=== PATIENT | female | born 1980 | race Hispanic/Latino ===

== ENCOUNTER 2017-10-16 20:53 | Observation (INO) | payer OTHER ==
--- NOTE | 2017-10-16 21:44 | ED PDOC ---
HPI: Abdomen Chief Complaint (Provider): pelvic pain History Per: Patient History/Exam Limitations: no limitations Onset/Duration Of Symptoms: Hrs Current Symptoms Are (Timing): Still Present Severity: Severe Location Of Pain/Discomfort: RLQ, LLQ, Suprapubic Quality Of Discomfort: Sharp Associated Symptoms: denies: Fever, Chills, Nausea, Vomiting, Diarrhea, Chest Pain, Constipation, Urinary Symptoms Exacerbating Factors: Deep Breaths, Other (Sitting) Alleviating Factors: Rest Last Bowel Movement: Today Additional History Per: Patient Abnormal Vaginal Bleeding: No Last Menstral Period: 10/14/17 <Wing Oshea - Last Filed: 10/17/17 04:48> <Ralph Beasley - Last Filed: 10/18/17 13:00> Time Seen by Provider: 10/16/17 21:18 Chief Complaint (Nursing): Abdominal Pain Additional Complaint(s): 37 y/o F with no significant PMhx presents c/o sharp pelvic pain since she woke up this morning. Patient states pain has improved at times with NSAIDs but she is concerned because she has never have a pain like this before. Pain is more located to LLQ and RLQ. Patient also c/o hx of lower back pain and bulging discs being treated with Naproxen. She has had menstrual cramps before during periods but never like this pain. LMP started 2 days ago, normal bleeding. Denies VD, urinary symptoms, constipation or diarrhea. (Wing Oshea) Supervising Attending Note - Supervising Attending Note The Documented history was done by the: Physician Laser Machine Operator, Attending Physician The documented physical exam was done by the: Physician Laser Machine Operator, Attending Physician The documented procedures were done by the: Physician Laser Machine Operator, Attending Physician - Attestation: I have personally seen and examined this patient.: Yes I have fully participated in the care of the patient.: Yes I have reviewed all pertinent clinical information: Yes <Ralph Beasley - Last Filed: 10/18/17 13:00> Past Medical History - Medical History PMH: No Chronic Diseases - Surgical History Surgical History: (x3) - Family History Family History: States: Unknown Family Hx <Wing Oshea - Last Filed: 10/17/17 04:48> Reviewed: Historical Data, Nursing Documentation, Vital Signs <Ralph Beasley - Last Filed: 10/18/17 13:00> Vital Signs: Last Vital Signs Temp 98 F 10/18/17 08:04 Pulse 58 L 10/18/17 08:04 Resp 20 10/18/17 08:04 BP 107/60 10/18/17 08:04 Pulse Ox 97 10/18/17 08:04 - Allergies Allergies/Adverse Reactions: Allergies Allergy/AdvReac Type Severity Reaction Status Date / Time clarithromycin [From Biaxin] Allergy RASH Verified 10/16/17 21:01 Review of Systems ROS Statement: Except As Marked, All Systems Reviewed And Found Negative Genitourinary Female: Positive for: Pelvic Pain <Wing Oshea - Last Filed: 10/17/17 04:48> ROS Statement: Except As Marked, All Systems Reviewed And Found Negative <Ralph Beasley A - Last Filed: 10/18/17 13:00> Physical Exam - Physical Exam Appears: Positive for: Uncomfortable (Pain) Skin: Positive for: Normal Color, Warm Eye Exam: Positive for: PERRL Cardiovascular/Chest: Positive for: Regular Rate, Rhythm. Negative for: Edema, Gallop, Murmur Respiratory: Positive for: Normal Breath Sounds. Negative for: Crackles, Rales , Wheezing, Respiratory Distress Gastrointestinal/Abdominal: Positive for: Soft, Tenderness (LLQ and RLQ), Guarding, Rebound (LLQ/RLQ). Negative for: Distended Extremity: Negative for: Tenderness, Calf Tenderness, Swelling Neurologic/Psych: Positive for: Alert, Oriented. Negative for: Motor/Sensory Deficits, Facial Droop <Wing Oshea - Last Filed: 10/17/17 04:48> - Reviewed Nursing Documentation Reviewed: Yes Vital Signs Reviewed: Yes <Ralph Beasley - Last Filed: 10/18/17 13:00> - Laboratory Results Result Diagrams: 10/16/17 22:20 10/16/17 22:20 - ECG O2 Sat by Pulse Oximetry: 99 <Wing Oshea - Last Filed: 10/17/17 04:48> - Laboratory Results Result Diagrams: 10/18/17 06:50 10/18/17 06:50 <Ralph Beasley - Last Filed: 10/18/17 13:00> Medical Decision Making <Wing Oshea - Last Filed: 10/17/17 04:48> <Ralph Beasley - Last Filed: 10/18/17 13:00> Medical Decision Makin37 y/o F with no significant PMhx presents for acute pelvic pain R/O Ovarian torsion vs other degreasing solution reclaimer pathology Upreg Udip CBC, BMP TV US (Wing Oshea) CT abdomen reviewed. 0300 Discussed the case and finding with surgical appliances salesperson who will see the patient and discuss with Dr Salgado [address] Salgado patient should be admitted for observation with his consult, NPO, and no antibiotics. (Ralph Beasley) Disposition <Wing Oshea - Last Filed: 10/17/17 04:48> - Patient ED Disposition Is Patient to be Admitted: Yes Discussed With : John Roman Doctor Will See Patient In The: ED Counseled Patient/Family Regarding: Studies Performed, Diagnosis - Disposition Disposition Time: 04:00 - Pt Status Changed To: Hospital Disposition Of: Observation - POA Present On Arrival: None <Ralph Beasley - Last Filed: 10/18/17 13:00> - Clinical Impression Clinical Impression: Abdominal pain - Disposition Condition: FAIR
[2017-10-16 22:44] LABS: BASO % 0.4 % (0.0-2.0); EOS # 0.1 K/uL (0.0-0.7); HEMOGLOBIN 14.8 g/dL (12.0-16.0); LYMPH # 1.6 K/uL (1.0-4.3); LYMPH % 14.4 % (20.0-40.0); MEAN CELL VOLUME 89.6 fl (81.0-99.0); MEAN CORPUSCULAR HEMOGLOBIN 30.7 pg (27.0-31.0); MEAN CORPUSCULAR HGB CONC 34.3 g/dL (33.0-37.0); MEAN PLATELET VOLUME 9.1 fl (7.2-11.7); MONO % 8.7 % (0.0-10.0); NEUT # 8.3 K/uL (1.8-7.0); NEUT % 75.5 % (50.0-75.0); RBC 4.81 Mil/uL (3.80-5.20); RED CELL DISTRIBUTION WIDTH 13.5 % (11.5-14.5)
[2017-10-16 22:53] LABS: BLOOD UREA NITROGEN 18 mg/dl (7-17); CALCIUM 8.9 mg/dL (8.4-10.2); GFR AFRICAN-AMERICAN > 60; GFR NON-AFRICAN AMERICAN > 60
[2017-10-16] MEDS ORDERED: Iohexol 240 (50 ml) PO ONE (23:55)
[2017-10-17] MEDS ORDERED: Iohexol 300 100 ML IJ ONE (01:31)
[2017-10-17] MEDS ORDERED: Sodium Chloride 0.9% 100 ML ONE (01:43)
--- NOTE | 2017-10-17 03:01 | CT ---
EXAM: CT Abdomen and Pelvis With Intravenous Contrast CLINICAL HISTORY: 37 years old, female; Pain; Abdominal pain; Localized; Lower; Prior surgery; Surgery date: 6+ months; Surgery type: 3 c sections; Additional info: Llq/rlq pain. Pt states contraction and bloating. Severe pain TECHNIQUE: Axial computed tomography images of the abdomen and pelvis with intravenous contrast. All CT scans at this facility use one or more dose reduction techniques, viz.: automated exposure control; ma/kV adjustment per patient size (including targeted exams where dose is matched to indication; i.e. head); or iterative reconstruction technique. Coronal and sagittal reformatted images were created and reviewed. CONTRAST: 95 mL of OMNIPAQUE-300 administered intravenously. COMPARISON: US - TRANSVAGINAL 2017-10-16 22:28 FINDINGS: Lung bases: Minimal atelectasis. ABDOMEN: Liver: 1.7 x 2.1 x 1.5 cm hypodense lesion with nodular peripheral enhancement. Gallbladder and bile ducts: No calcified stones. No ductal dilation. Pancreas: No ductal dilation. No mass. Spleen: No splenomegaly. Adrenals: No mass. Kidneys and ureters: No mass. No hydronephrosis. Stomach and bowel: No definite mural thickening. No obstruction. Appendix: Borderline enlarged appendix, 6-7 mm in diameter. Apparent mild mucosal enhancement. No definite surrounding inflammation. PELVIS: Bladder: Unremarkable. Reproductive: Mild stranding about left adnexa. ABDOMEN and PELVIS: Intraperitoneal space: Small amount of fluid within left paracolic gutter. No free air. Bones/joints: No acute fracture. Soft tissues: Tiny umbilical hernia containing fat. Vasculature: Unremarkable. No aneurysm. Lymph nodes: No pathologically enlarged lymph nodes. IMPRESSION: 1. Borderline enlarged appendix with apparent mild mucosal enhancement but without surrounding inflammation. Clinical correlation is needed. 2. Mild stranding about left adnexa, uncertain significance. Clinical correlation is needed. 3. Liver lesion, likely hemangioma but incompletely characterized. Recommend nonemergent MRI. 4. Incidental/non-acute findings are described above.
[2017-10-17] MEDS ORDERED: HYDROmorphone 0.5 mg/0.5 ml ISec IVP PRN (04:05)
[2017-10-17] MEDS ORDERED: Alum-Mag Hydrox-Simethicone Susp (30 mL) PO ONE (04:05)
[2017-10-17] MEDS: Sodium Chloride 0.9% 1,000 ML IV SCH ×2 (04:20→14:00)
--- NOTE | 2017-10-17 04:29 | CP.PCM.CON ---
<Ramakrishna Horne - Last Filed: 10/17/17 04:18> History of Present Illness - History of Present Illness History of Present Illness: Surgery 37 F w pmh of ovarian cyst, lumbar disk hernia, x3 came to ED with low abd pain started this AM. Pain is located b/l low abd. More on the L side. Reports sharp pain and bloating. Pain and bloating became progressively worsen and IV toradol in ED relieved the sx. Denies fever, chills, nausea, vomiting, diarrhea, chest pain, SOB, hematochezia, hematemesis, hematuria, dysuria, constipation, sick contact, recent travel. Pt is currently on period and had regular BM this AM. She was recently diagnosed with lumbar disk herniation and sciatica, takes naproxen for it. Surgery is consulted to evaluate to r/o appendicitis. CT abd shows 7mm dilated appendix and mucosal enhancement but no surrounding inflammation. L adnexal inflammation/fat stranding. US: b/l ovarian folicles. WBC: 11 PMH : ovrian cyst, lumbar disk hernia on Naproxen PSH: x3 LMP: 10/15/17 Review of Systems - Review of Systems Review of Systems: see HPI Past Patient History - Past Social History Smoking Status: Never Smoked - PSYCHIATRIC Hx Psychophysiologic Disorder: No Hx Substance Use: No Meds Allergies/Adverse Reactions: Allergies Allergy/AdvReac Type Severity Reaction Status Date / Time clarithromycin [From Biaxin] Allergy RASH Verified 10/16/17 21:01 - Medications Medications: Current Medications Al Hydrox/Mg Hydrox/Simethicone (Maalox Plus 30 Ml) 30 ml PO ONCE ONE Stop: 10/17/17 04:06 Hydromorphone HCl (Dilaudid) 1 mg IVP Q4 PRN PRN Reason: Pain, severe (8-10) Sodium Chloride (Sodium Chloride 0.9%) 1,000 mls @ 100 mls/hr IV .Q10H CESIA Stop: 10/18/17 04:09 Physical Exam - Constitutional Appears: Non-toxic - Head Exam Head Exam: ATRAUMATIC, NORMAL INSPECTION, NORMOCEPHALIC - Eye Exam Eye Exam: EOMI, Normal appearance, PERRL Pupil Exam: NORMAL ACCOMODATION, PERRL - ENT Exam ENT Exam: Mucous Membranes Moist, Normal Exam - Neck Exam Neck exam: Positive for: Normal Inspection - Respiratory Exam Respiratory Exam: Clear to Auscultation Bilateral, NORMAL BREATHING PATTERN - Cardiovascular Exam Cardiovascular Exam: REGULAR RHYTHM - GI/Abdominal Exam GI & Abdominal Exam: Guarding, Normal Bowel Sounds, Rebound, Soft, Tenderness. absent: Distended, Firm, Hernia, Mass, Organomegaly, Pulsatile Mass, Rigid Additional comments: b/l lower abd TTP. No obturator sign, No psoas sign. - Exam Exam: NORMAL INSPECTION - Extremities Exam Extremities exam: Positive for: full ROM, normal inspection - Back Exam Back exam: NORMAL INSPECTION - Neurological Exam Neurological exam: Alert, CN II-XII Intact, Normal Gait, Oriented x3, Reflexes Normal - Psychiatric Exam Psychiatric exam: Normal Affect, Normal Mood - Skin Skin Exam: Dry, Intact, Normal Color, Warm Results - Vital Signs Recent Vital Signs: Last Vital Signs Temp 98.4 F 10/17/17 03:00 Pulse 79 10/17/17 03:00 Resp 16 10/17/17 03:00 BP 132/77 10/17/17 03:00 Pulse Ox 97 10/17/17 03:00 - Labs Result Diagrams: 10/16/17 22:20 10/16/17 22:20 Labs: Laboratory Results - last 24 hr 10/16/17 10/16/17 22:20 22:20 WBC 11.0 H RBC 4.81 Hgb 14.8 Hct 43.1 MCV 89.6 MCH 30.7 MCHC 34.3 RDW 13.5 Plt Count 212 MPV 9.1 Neut % (Auto) 75.5 H Lymph % (Auto) 14.4 L [place] % (Auto) 8.7 Eos % (Auto) 1.0 Baso % (Auto) 0.4 Neut # (Auto) 8.3 H Lymph # (Auto) 1.6 [place] # (Auto) 1.0 H Eos # (Auto) 0.1 Baso # (Auto) 0.0 Sodium 146 Potassium 3.8 Chloride 107 Carbon Dioxide 24 Anion Gap 19 BUN 18 H Creatinine 0.7 Est GFR ( Amer) > 60 Est GFR (Non-Af Amer) > 60 Random Glucose 106 H Calcium 8.9 Assessment & Plan - Assessment and Plan (Free Text) Assessment: R/o appendicitis: No fever, nausea, diarrhea. More pain on the L side than R. borderline normal leukocytosis Possible ruptured ovarian cyst : pt had h/o ovarian cyst. Pain is more on the L side. CT abd shows 7mm dilated appendix and mucosal enhancement but no surrounding inflammation. L adnexal inflammation/fat stranding. US: b/l ovarian folicles. WBC: 11 -NPO -IVF -Admit for observation -pain control DW Dr. Salgado <Chapo Salgado - Last Filed: 10/17/17 17:03> History of Present Illness - History of Present Illness History of Present Illness: Patient was seen and examined at the bedside. Agree with resident's note above. Meds - Medications Medications: Current Medications Sodium Chloride (Sodium Chloride 0.9%) 1,000 mls @ 100 mls/hr IV .Q10H CESIA Stop: 10/18/17 04:09 Last Admin: 10/17/17 14:00 Dose: 100 mls/hr Ketorolac Tromethamine (Toradol) 15 mg IM Q6 PRN PRN Reason: Pain, moderate (4-7) Last Admin: 10/17/17 06:15 Dose: 15 mg Metoclopramide HCl (Reglan) 5 mg IVP Q6 PRN PRN Reason: Nausea/Vomiting Morphine Sulfate (Morphine) 2 mg IVP Q4 PRN PRN Reason: Pain, severe (8-10) Physical Exam - GI/Abdominal Exam Additional comments: soft, tender in the lower abdomen more in the LLQ, ND, BS+, no guarding, mild rebound Results - Vital Signs Recent Vital Signs: Last Vital Signs Temp 98.3 F 10/17/17 16:29 Pulse 59 L 10/17/17 16:29 Resp 18 10/17/17 16:29 BP 105/66 10/17/17 16:29 Pulse Ox 98 10/17/17 16:29 - Labs Result Diagrams: 10/17/17 09:15 10/16/17 22:20 Labs: Laboratory Results - last 24 hr 10/16/17 10/16/17 10/17/17 22:20 22:20 08:30 WBC 11.0 H RBC 4.81 Hgb 14.8 Hct 43.1 MCV 89.6 MCH 30.7 MCHC 34.3 RDW 13.5 Plt Count 212 MPV 9.1 Neut % (Auto) 75.5 H Lymph % (Auto) 14.4 L [place] % (Auto) 8.7 Eos % (Auto) 1.0 Baso % (Auto) 0.4 Neut # (Auto) 8.3 H Lymph # (Auto) 1.6 [place] # (Auto) 1.0 H Eos # (Auto) 0.1 Baso # (Auto) 0.0 Sodium 146 Potassium 3.8 Chloride 107 Carbon Dioxide 24 Anion Gap 19 BUN 18 H Creatinine 0.7 Est GFR ( Amer) > 60 Est GFR (Non-Af Amer) > 60 Random Glucose 106 H Calcium 8.9 Urine Color Yellow Urine Clarity Clear Urine pH 7.0 Ur Specific [place] 1.033 H Urine Protein Negative Urine Glucose (UA) Neg Urine Ketones Negative Urine Blood Moderate Urine Nitrate Negative Urine Bilirubin Negative Urine Urobilinogen 0.2-1.0 Ur Leukocyte Esterase Neg Urine RBC (Auto) 5 H Urine Microscopic WBC 1 Ur Squamous Epith Cells 1 10/17/17 09:15 WBC 8.2 RBC 4.53 Hgb 13.9 Hct 40.4 MCV 89.1 MCH 30.7 MCHC 34.5 RDW 13.3 Plt Count 184 MPV 8.6 Neut % (Auto) 74.3 Lymph % (Auto) 14.0 L [place] % (Auto) 10.5 H Eos % (Auto) 0.7 Baso % (Auto) 0.5 Neut # (Auto) 6.1 Lymph # (Auto) 1.1 [place] # (Auto) 0.9 H Eos # (Auto) 0.1 Baso # (Auto) 0.0 Sodium Potassium Chloride Carbon Dioxide Anion Gap BUN Creatinine Est GFR ( Amer) Est GFR (Non-Af Amer) Random Glucose Calcium Urine Color Urine Clarity Urine pH Ur Specific [place] Urine Protein Urine Glucose (UA) Urine Ketones Urine Blood Urine Nitrate Urine Bilirubin Urine Urobilinogen Ur Leukocyte Esterase Urine RBC (Auto) Urine Microscopic WBC Ur Squamous Epith Cells - Imaging and Cardiology CT scan - abdomen Status: Image reviewed by me, Report reviewed by me Assessment & Plan - Assessment and Plan (Free Text) Plan: - Keep NPO - IV fluids - pain control - Hold off on antibiotics - Recommend [employer] consultation - Repeat labs in am - Will follow
--- NOTE | 2017-10-17 05:34 | CP.PCM.HP ---
History of Present Illness - History of Present Illness History of Present Illness: PMD: not on Staff Chief Complaint: abdominal pain The patient was seen and examined in the ED HPI: 37 years old female with hx of lower back pain comes with one day of sharp pain across the lower abdomen. This pain woke her up in the morning, was continuous, with sensation of bruising and increasing with pressure, coughing or stretching, with some relief from Naprosyn which she takes for her back. The abdomen felt distended. No fever, chills, nausea, vomits, diarrhea nor dysuria. PMH: Ovarian cysts; Lower back pain with bulging disc; PSH: Cesarian Section X3 SH: Former Smoker; Occasional Alcohol; No illegal drug use; Live with family; work in [place] FH: Father with Hx of CABG Allergies: Clarithromycin Medication: reviewed Present on Admission - Present on Admission Any Indicators Present on Admission: No History of DVT/PE: No History of Uncontrolled Diabetes: No Urinary Catheter: No Decubitus Ulcer Present: No Review of Systems - Constitutional Constitutional: absent: Anorexia, Chills, Fever, Headache, Lethargy - EENT Eyes: absent: Floaters, Itchy Eyes, Requires Corrective Lenses, Sees Flashes Ears: absent: Decreased Hearing, Ear Discharge, Ear Pain, Tinnitus Nose/Mouth/Throat: absent: Epistaxis, Nasal Congestion, Nasal Discharge, Sinus Pain, Sinus Pressure - Cardiovascular Cardiovascular: absent: Chest Pain, Dyspnea, Edema - Respiratory Respiratory: absent: Cough, Dyspnea, Stridor, Excessive Mucous Production - Gastrointestinal Gastrointestinal: Abdominal Pain. absent: Constipation, Diarrhea, Nausea - Genitourinary Genitourinary: absent: Dysuria, Flank Pain, Hematuria, Urinary Frequency - Musculoskeletal Musculoskeletal: absent: Arthralgias, Joint Swelling, Muscle Cramps, Muscle Weakness - Integumentary Integumentary: absent: Pruritus, Rash, Skin Ulcer, Sores, Striae, Swelling - Neurological Neurological: absent: Confusion, Dizziness, Focal Weakness, Weakness - Psychiatric Psychiatric: absent: Anxiety, Depression, Panic Attacks - Endocrine Endocrine: absent: Palpitations, Polydipsia, Polyphagia, Polyuria - Hematologic/Lymphatic Hematologic: absent: Easy Bleeding, Easy Bruising Past Patient History - Past Medical History & Family History Past Medical History?: Yes - Past Social History Smoking Status: Former Smoker Chewing Tobacco Use: No Cigar Use: No Alcohol: Occasional Home Situation {Lives}: With Family - CARDIAC Hx Cardiac Disorders: No - PULMONARY Hx Respiratory Disorders: No - NEUROLOGICAL Hx Neurological Disorder: No - HEENT Hx HEENT Problems: No - RENAL Hx Chronic Kidney Disease: No - ENDOCRINE/METABOLIC Hx Endocrine Disorders: No - HEMATOLOGICAL/ONCOLOGICAL Hx Blood Disorders: No - INTEGUMENTARY Hx Dermatological Problems: No - MUSCULOSKELETAL/RHEUMATOLOGICAL Hx Musculoskeletal Disorders: Yes Other/Comment: bulging disc with back pain - GASTROINTESTINAL Hx Gastrointestinal Disorders: No - GENITOURINARY/GYNECOLOGICAL Hx Genitourinary Disorders: Yes Other/Comment: Ovarian Cysts - PSYCHIATRIC Hx Psychophysiologic Disorder: No Hx Substance Use: No - SURGICAL HISTORY Hx Section: Yes (X3) - ANESTHESIA Hx Anesthesia: Yes Hx Anesthesia Reactions: No Meds Allergies/Adverse Reactions: Allergies Allergy/AdvReac Type Severity Reaction Status Date / Time clarithromycin [From Biaxin] Allergy RASH Verified 10/16/17 21:01 Physical Exam - Constitutional Appears: No Acute Distress - Head Exam Head Exam: ATRAUMATIC, NORMAL INSPECTION, NORMOCEPHALIC - Eye Exam Eye Exam: EOMI, Normal appearance Pupil Exam: NORMAL ACCOMODATION, PERRL - ENT Exam ENT Exam: Mucous Membranes Moist, Normal Exam, Normal External Ear Exam, Normal Oropharynx - Neck Exam Neck exam: Positive for: Full Rom, Normal Inspection. Negative for: Lymphadenopathy, Tenderness - Respiratory Exam Respiratory Exam: Clear to Auscultation Bilateral. absent: Rales, Rhonchi, Wheezes - Cardiovascular Exam Cardiovascular Exam: REGULAR RHYTHM, RRR, +S1, +S2. absent: Gallop - GI/Abdominal Exam Additional comments: Flat, soft, no guarding, tender across the lower abdomen, moderate rebound tenderness, +ve bowel sounds - Rectal Exam Rectal Exam: Deferred - Extremities Exam Extremities exam: Positive for: full ROM, normal inspection. Negative for: calf tenderness, joint swelling, pedal edema - Back Exam Back exam: NORMAL INSPECTION. absent: CVA tenderness (L), CVA tenderness (R) - Neurological Exam Neurological exam: Alert, CN II-XII Intact, Oriented x3, Reflexes Normal - Psychiatric Exam Psychiatric exam: Normal Affect, Normal Mood - Skin Skin Exam: Dry, Intact, Normal Color, Warm Results - Vital Signs Recent Vital Signs: Last Vital Signs Temp 98.3 F 04/22/18 05:10 Pulse 58 L 10/17/17 05:10 Resp 16 10/17/17 05:10 BP 109/57 L 10/17/17 05:10 Pulse Ox 98 10/17/17 05:10 - Labs Result Diagrams: 10/16/17 22:20 10/16/17 22:20 Labs: Laboratory Results - last 24 hr 10/16/17 10/16/17 22:20 22:20 WBC 11.0 H RBC 4.81 Hgb 14.8 Hct 43.1 MCV 89.6 MCH 30.7 MCHC 34.3 RDW 13.5 Plt Count 212 MPV 9.1 Neut % (Auto) 75.5 H Lymph % (Auto) 14.4 L [place] % (Auto) 8.7 Eos % (Auto) 1.0 Baso % (Auto) 0.4 Neut # (Auto) 8.3 H Lymph # (Auto) 1.6 [place] # (Auto) 1.0 H Eos # (Auto) 0.1 Baso # (Auto) 0.0 Sodium 146 Potassium 3.8 Chloride 107 Carbon Dioxide 24 Anion Gap 19 BUN 18 H Creatinine 0.7 Est GFR ( Amer) > 60 Est GFR (Non-Af Amer) > 60 Random Glucose 106 H Calcium 8.9 - Imaging and Cardiology CT scan - abdomen Status: Report reviewed by me Additional comment: EXAM: CT Abdomen and Pelvis With Intravenous Contrast FINDINGS: Lung bases: Minimal atelectasis. ABDOMEN: Liver: 1.7 x 2.1 x 1.5 cm hypodense lesion with nodular peripheral enhancement. Gallbladder and bile ducts: No calcified stones. No ductal dilation. Pancreas: No ductal dilation. No mass. Spleen: No splenomegaly. Adrenals: No mass. Kidneys and ureters: No mass. No hydronephrosis. Stomach and bowel: No definite mural thickening. No obstruction. Appendix: Borderline enlarged appendix, 6-7 mm in diameter. Apparent mild mucosal enhancement. No definite surrounding inflammation. PELVIS: Bladder: Unremarkable. Reproductive: Mild stranding about left adnexa. ABDOMEN and PELVIS: Intraperitoneal space: Small amount of fluid within left paracolic gutter. No free air. Bones/joints: No acute fracture. Soft tissues: Tiny umbilical hernia containing fat. Vasculature: Unremarkable. No aneurysm. Lymph nodes: No pathologically enlarged lymph nodes. IMPRESSION: 1. Borderline enlarged appendix with apparent mild mucosal enhancement but without surrounding inflammation. Clinical correlation is needed. 2. Mild stranding about left adnexa, uncertain significance. Clinical correlation is needed. 3. Liver lesion, likely hemangioma but incompletely characterized. Recommend nonemergent MRI. 4. Incidental/non-acute findings are described above. Intravaginal US Additional comment: EXAM: US Pelvis, Transvaginal FINDINGS: Uterus/cervix: The uterus measures 9.1 cm in its cephalocaudad dimension and 5.6 x 6.8 cm in its AP and lateral dimensions. The endometrium measures 8 mm. No myometrial mass. Right ovary: The right ovary measures 1.9 x 2.4 x 2.2 cm and demonstrates small follicles and normal blood flow. Left ovary: The left ovary measures 2.3 x 3.4 x 2.2 cm and demonstrates normal blood flow and a few small follicles. Free fluid: No free fluid. IMPRESSION: Negative pelvic sonogram. Assessment & Plan - Assessment and Plan (Free Text) Assessment: #. Abdominal pain #. Leukocytosi Plan: 37 years old female with hx of lower back pain comes with one day of sharp pain across the lower abdomen, was continuous, with sensation of bruising and increasing with pressure, coughing or stretching, with some relief from Naprosyn which she takes for her back. The abdomen felt distended. #. Abdominal pain r/o Appendicitis vs ruptured ovarian cyst CT Abd/Pelvis IMPRESSION: 1. Borderline enlarged appendix with apparent mild mucosal enhancement but without surrounding inflammation. Clinical correlation is needed. 2. Mild stranding about left adnexa, uncertain significance. Clinical correlation is needed. - Consult Surgery Dr Salgado - NPO - Pain management with Toradol - IV Fluid - Reglan for Nausea/vomits - Follow Repeated CBC #. Leukocytosis - follow WBC #. Stress ulcer Prophylaxis with Pepcid #. DVT prophylaxis with SCD #. Code Status: Full - Date & Time Date: 10/17/17 Time: 05:34
[2017-10-17 09:05] LABS: SQUAMOUS EPITHIAL 1 /hpf (0-5); URINE BILIRUBIN NEGATIVE (NEGATIVE); URINE BLOOD MODERATE (NEGATIVE); URINE CLARITY CLEAR (Clear); URINE COLOR YELLOW (YELLOW); URINE GLUCOSE (UA) NEG (Normal); URINE LEUKOCYTE ESTERASE NEG Leu/uL (Negative); URINE PROTEIN NEGATIVE (NEGATIVE); URINE UROBILINOGEN 0.2-1.0 mg/dL (0.2-1.0)
--- NOTE | 2017-10-17 09:11 | US ---
HISTORY: pelvic pain COMPARISON: None available. TECHNIQUE: Grayscale, color Doppler and spectral evaluation the pelvis performed transabdominally and transvaginally FINDINGS: UTERUS: Measures 9.0 x 5.6 x 6.7 cm. Anteverted. Normal in size and appearance. No fibroid or other mass lesion seen. ENDOMETRIUM: Measures 8 mm in diameter. Unremarkable. CERVIX: No cervical abnormality identified. RIGHT OVARY: Measures 2.4 x 2.1 x 1.9 cm. No solid mass. Normal flow. LEFT OVARY: Measures 3.4 x 2.2 x 2.2 cm. No solid mass. Normal flow. FREE FLUID: No significant free fluid noted. OTHER FINDINGS: None. IMPRESSION: Unremarkable pelvic ultrasound.
[2017-10-17 09:32] LABS: BASO % 0.5 % (0.0-2.0); EOS # 0.1 K/uL (0.0-0.7); EOS % 0.7 % (0.0-4.0); HEMOGLOBIN 13.9 g/dL (12.0-16.0); LYMPH # 1.1 K/uL (1.0-4.3); MEAN CELL VOLUME 89.1 fl (81.0-99.0); MEAN CORPUSCULAR HEMOGLOBIN 30.7 pg (27.0-31.0); MEAN CORPUSCULAR HGB CONC 34.5 g/dL (33.0-37.0); MEAN PLATELET VOLUME 8.6 fl (7.2-11.7); MONO # 0.9 K/uL (0.0-0.8); MONO % 10.5 % (0.0-10.0); NEUT # 6.1 K/uL (1.8-7.0); NEUT % 74.3 % (50.0-75.0); RBC 4.53 Mil/uL (3.80-5.20); RED CELL DISTRIBUTION WIDTH 13.3 % (11.5-14.5); WHITE BLOOD COUNT 8.2 K/uL (4.8-10.8)
[2017-10-17] MEDS ORDERED: Chlorhexidine Gluconate 1 APPL/PKT TP ONE (18:34)
--- NOTE | 2017-10-17 18:53 | CP.PCM.CON ---
<Sultan Lin - Last Filed: 10/17/17 19:27> History of Present Illness - History of Present Illness History of Present Illness: BAKING ASSISTANT consult note for Dr. Ho 37 yo admitted to [facility] for B/L lower abdominal pain(L>R) started on 10/16. Pt reports pain woke her up from the sleep on Wednesday morning. States initially pain was 9/10 but now pain is 6/10 ( last dose of toradol was 6 am this morning. Reports pain bruise and punch like sensation with pain radiation to upper abdomen with movement. Pt is recently diagnosed with sciatica and lumbar disk hernination for which she takes naproxen 500 mg PO BID. Pt is currently on menstruation. Denies any vaginal discharge before the menstruation. Denies any trauma to abdomen. Denies dysuria, nausea, vomiting, fever, chills, diarrhea or blood in stool. Denies any hx STI. LMP 10/15/17. 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 Menarche at 8, regular menstruation monthly lasts 4- 5 days. Normal PAP in 04/2017. Denies hx STI. Sexually active with one partner and partner had vasectomy few years ago. Mammogram and US in 04/2017: cyst on the right breast as per pt and surveillance in 6 months. Pmhx: ovarian cyst, sciatica Pshx: x 3 Social hx: former smoker (quit 7 yrs ago), drinks one glass of wine daily. Denies recreational drug uses Family hx: father CAD and HTN Allergies: clarithromycin Medications: naproxen 500 mg PO BID PRN Review of Systems - Constitutional Constitutional: absent: Chills, Fever - EENT Eyes: absent: Blurred Vision - Cardiovascular Cardiovascular: absent: Chest Pain, Chest Pain at Rest, Dyspnea - Respiratory Respiratory: absent: Cough, Dyspnea - Gastrointestinal Gastrointestinal: Abdominal Pain. absent: Constipation, Nausea, Vomiting - Genitourinary Genitourinary: absent: Dysuria, Hematuria - Integumentary Integumentary: absent: Rash - Neurological Neurological: absent: Headaches Past Patient History - Past Medical History & Family History Past Medical History?: Yes - Past Social History Smoking Status: Never Smoked - CARDIAC Hx Cardiac Disorders: No - PULMONARY Hx Respiratory Disorders: No - NEUROLOGICAL Hx Neurological Disorder: No - HEENT Hx HEENT Problems: No - RENAL Hx Chronic Kidney Disease: No - ENDOCRINE/METABOLIC Hx Endocrine Disorders: No - HEMATOLOGICAL/ONCOLOGICAL Hx Blood Disorders: No Hx AIDS: No Hx Human Immunodeficiency Virus (HIV): No - INTEGUMENTARY Hx Dermatological Problems: No - MUSCULOSKELETAL/RHEUMATOLOGICAL Hx Musculoskeletal Disorders: Yes Hx Falls: No Hx Herniated Disk: Yes Other/Comment: Sciatica - GASTROINTESTINAL Hx Gastrointestinal Disorders: No - GENITOURINARY/GYNECOLOGICAL Hx Genitourinary Disorders: Yes Other/Comment: Ovarian Cysts - PSYCHIATRIC Hx Psychophysiologic Disorder: No Hx Substance Use: No - SURGICAL HISTORY Hx Surgeries: Yes Hx Section: Yes (X3) - ANESTHESIA Hx Anesthesia: Yes Hx Anesthesia Reactions: No Meds Allergies/Adverse Reactions: Allergies Allergy/AdvReac Type Severity Reaction Status Date / Time clarithromycin [From Biaxin] Allergy RASH Verified 10/16/17 21:01 - Medications Medications: Current Medications Sodium Chloride (Sodium Chloride 0.9%) 1,000 mls @ 100 mls/hr IV .Q10H CESIA Stop: 10/18/17 04:09 Last Admin: 10/17/17 14:00 Dose: 100 mls/hr Ketorolac Tromethamine (Toradol) 15 mg IM Q6 PRN PRN Reason: Pain, moderate (4-7) Last Admin: 10/17/17 06:15 Dose: 15 mg Metoclopramide HCl (Reglan) 5 mg IVP Q6 PRN PRN Reason: Nausea/Vomiting Morphine Sulfate (Morphine) 2 mg IVP Q4 PRN PRN Reason: Pain, severe (8-10) Physical Exam - Constitutional Appears: Non-toxic, No Acute Distress - Head Exam Head Exam: ATRAUMATIC, NORMOCEPHALIC - ENT Exam ENT Exam: Mucous Membranes Moist - Respiratory Exam Respiratory Exam: Clear to Auscultation Bilateral, NORMAL BREATHING PATTERN. absent: Rales, Rhonchi - Cardiovascular Exam Cardiovascular Exam: REGULAR RHYTHM, RRR, +S1, +S2 - GI/Abdominal Exam GI & Abdominal Exam: Normal Bowel Sounds Additional comments: Moderate tenderness in lower abdomen (L>R) with rebound tenderness. +Rovsing's sign. - Exam Additional comments: [employer]: Ms Márquez (RN) CMT: equivocal - Neurological Exam Neurological exam: Alert, Oriented x3 - Skin Skin Exam: Normal Color, Warm Results - Vital Signs Recent Vital Signs: Last Vital Signs Temp 98.3 F 10/17/17 16:29 Pulse 59 L 10/17/17 16:29 Resp 18 10/17/17 16:29 BP 105/66 10/17/17 16:29 Pulse Ox 98 10/17/17 16:29 - Labs Result Diagrams: 10/17/17 09:15 10/16/17 22:20 Labs: Laboratory Results - last 24 hr 10/16/17 10/16/17 10/17/17 22:20 22:20 08:30 WBC 11.0 H RBC 4.81 Hgb 14.8 Hct 43.1 MCV 89.6 MCH 30.7 MCHC 34.3 RDW 13.5 Plt Count 212 MPV 9.1 Neut % (Auto) 75.5 H Lymph % (Auto) 14.4 L [place] % (Auto) 8.7 Eos % (Auto) 1.0 Baso % (Auto) 0.4 Neut # (Auto) 8.3 H Lymph # (Auto) 1.6 [place] # (Auto) 1.0 H Eos # (Auto) 0.1 Baso # (Auto) 0.0 Sodium 146 Potassium 3.8 Chloride 107 Carbon Dioxide 24 Anion Gap 19 BUN 18 H Creatinine 0.7 Est GFR ( Amer) > 60 Est GFR (Non-Af Amer) > 60 Random Glucose 106 H Calcium 8.9 Urine Color Yellow Urine Clarity Clear Urine pH 7.0 Ur Specific [place] 1.033 H Urine Protein Negative Urine Glucose (UA) Neg Urine Ketones Negative Urine Blood Moderate Urine Nitrate Negative Urine Bilirubin Negative Urine Urobilinogen 0.2-1.0 Ur Leukocyte Esterase Neg Urine RBC (Auto) 5 H Urine Microscopic WBC 1 Ur Squamous Epith Cells 1 10/17/17 09:15 WBC 8.2 RBC 4.53 Hgb 13.9 Hct 40.4 MCV 89.1 MCH 30.7 MCHC 34.5 RDW 13.3 Plt Count 184 MPV 8.6 Neut % (Auto) 74.3 Lymph % (Auto) 14.0 L [place] % (Auto) 10.5 H Eos % (Auto) 0.7 Baso % (Auto) 0.5 Neut # (Auto) 6.1 Lymph # (Auto) 1.1 [place] # (Auto) 0.9 H Eos # (Auto) 0.1 Baso # (Auto) 0.0 Sodium Potassium Chloride Carbon Dioxide Anion Gap BUN Creatinine Est GFR ( Amer) Est GFR (Non-Af Amer) Random Glucose Calcium Urine Color Urine Clarity Urine pH Ur Specific [place] Urine Protein Urine Glucose (UA) Urine Ketones Urine Blood Urine Nitrate Urine Bilirubin Urine Urobilinogen Ur Leukocyte Esterase Urine RBC (Auto) Urine Microscopic WBC Ur Squamous Epith Cells Assessment & Plan - Assessment and Plan (Free Text) Assessment: Assessment: 37 yo admitted to [facility] today for B/L lower abdominal pain(L> R) started on 10/16/17, no obvious BAKING ASSISTANT pathology identified. Plan: TV pelvis US: unremarkable pelvic US. CT abdomen and pelvis on 10/16/17: IMPRESSION: 1. Borderline enlarged appendix with apparent mild mucosal enhancement but without surrounding inflammation. Clinical correlation is needed. 2. Mild stranding about left adnexa, uncertain significance. -Pain management -Manage as per surgery. -Advised pt to f/u with her CUSTOM WOOD STAIR BUILDER within a week after discharge. -Reconsult BAKING ASSISTANT prn. Pt seen and examined with on-call OB Hospitalist Dr. Ho <Jose Ho - Last Filed: 10/17/17 19:48> Meds - Medications Medications: Current Medications Sodium Chloride (Sodium Chloride 0.9%) 1,000 mls @ 100 mls/hr IV .Q10H CESIA Stop: 10/18/17 04:09 Last Admin: 10/17/17 14:00 Dose: 100 mls/hr Ketorolac Tromethamine (Toradol) 15 mg IM Q6 PRN PRN Reason: Pain, moderate (4-7) Last Admin: 10/17/17 06:15 Dose: 15 mg Metoclopramide HCl (Reglan) 5 mg IVP Q6 PRN PRN Reason: Nausea/Vomiting Morphine Sulfate (Morphine) 2 mg IVP Q4 PRN PRN Reason: Pain, severe (8-10) Results - Vital Signs Recent Vital Signs: Last Vital Signs Temp 98.3 F 10/17/17 16:29 Pulse 59 L 10/17/17 16:29 Resp 18 10/17/17 16:29 BP 105/66 10/17/17 16:29 Pulse Ox 98 10/17/17 16:29 - Labs Result Diagrams: 10/17/17 09:15 10/16/17 22:20 Labs: Laboratory Results - last 24 hr 10/16/17 10/16/17 10/17/17 22:20 22:20 08:30 WBC 11.0 H RBC 4.81 Hgb 14.8 Hct 43.1 MCV 89.6 MCH 30.7 MCHC 34.3 RDW 13.5 Plt Count 212 MPV 9.1 Neut % (Auto) 75.5 H Lymph % (Auto) 14.4 L [place] % (Auto) 8.7 Eos % (Auto) 1.0 Baso % (Auto) 0.4 Neut # (Auto) 8.3 H Lymph # (Auto) 1.6 [place] # (Auto) 1.0 H Eos # (Auto) 0.1 Baso # (Auto) 0.0 Sodium 146 Potassium 3.8 Chloride 107 Carbon Dioxide 24 Anion Gap 19 BUN 18 H Creatinine 0.7 Est GFR ( Amer) > 60 Est GFR (Non-Af Amer) > 60 Random Glucose 106 H Calcium 8.9 Urine Color Yellow Urine Clarity Clear Urine pH 7.0 Ur Specific [place] 1.033 H Urine Protein Negative Urine Glucose (UA) Neg Urine Ketones Negative Urine Blood Moderate Urine Nitrate Negative Urine Bilirubin Negative Urine Urobilinogen 0.2-1.0 Ur Leukocyte Esterase Neg Urine RBC (Auto) 5 H Urine Microscopic WBC 1 Ur Squamous Epith Cells 1 10/17/17 09:15 WBC 8.2 RBC 4.53 Hgb 13.9 Hct 40.4 MCV 89.1 MCH 30.7 MCHC 34.5 RDW 13.3 Plt Count 184 MPV 8.6 Neut % (Auto) 74.3 Lymph % (Auto) 14.0 L [place] % (Auto) 10.5 H Eos % (Auto) 0.7 Baso % (Auto) 0.5 Neut # (Auto) 6.1 Lymph # (Auto) 1.1 [place] # (Auto) 0.9 H Eos # (Auto) 0.1 Baso # (Auto) 0.0 Sodium Potassium Chloride Carbon Dioxide Anion Gap BUN Creatinine Est GFR ( Amer) Est GFR (Non-Af Amer) Random Glucose Calcium Urine Color Urine Clarity Urine pH Ur Specific [place] Urine Protein Urine Glucose (UA) Urine Ketones Urine Blood Urine Nitrate Urine Bilirubin Urine Urobilinogen Ur Leukocyte Esterase Urine RBC (Auto) Urine Microscopic WBC Ur Squamous Epith Cells Attending/Attestation - Attestation I have personally seen and examined this patient.: Yes I have fully participated in the care of the patient.: Yes I have reviewed all pertinent clinical information: Yes
[2017-10-18] MEDS: Sodium Chloride 0.9% 1,000 ML IV SCH (00:15)
[2017-10-18 07:27] LABS: BASO % 0.5 % (0.0-2.0); EOS # 0.1 K/uL (0.0-0.7); EOS % 1.2 % (0.0-4.0); HEMOGLOBIN 13.1 g/dL (12.0-16.0); LYMPH # 1.5 K/uL (1.0-4.3); LYMPH % 27.7 % (20.0-40.0); MEAN CELL VOLUME 90.1 fl (81.0-99.0); MEAN CORPUSCULAR HGB CONC 34.4 g/dL (33.0-37.0); MEAN PLATELET VOLUME 9.5 fl (7.2-11.7); MONO # 0.5 K/uL (0.0-0.8); MONO % 8.9 % (0.0-10.0); NEUT # 3.4 K/uL (1.8-7.0); NEUT % 61.7 % (50.0-75.0); NRBC % 0.3 % (0.0-0.0); RBC 4.22 Mil/uL (3.80-5.20); RED CELL DISTRIBUTION WIDTH 13.3 % (11.5-14.5); WHITE BLOOD COUNT 5.5 K/uL (4.8-10.8)
[2017-10-18 07:47] LABS: ALB/GLOB RATIO 1.1 (1.0-2.1); ALT/SGPT 29 U/L (9-52); AST/SGOT 17 U/L (14-36); BLOOD UREA NITROGEN 17 mg/dl (7-17); CALCIUM 8.2 mg/dL (8.4-10.2); GFR AFRICAN-AMERICAN > 60; GFR NON-AFRICAN AMERICAN > 60
[2017-10-18 08:04] VITALS: BP 107/60; PULSE 58; RESP 20; TEMP 98; O2SAT 97
--- NOTE | 2017-10-18 08:48 | CP.PCM.PN ---
<Marco Landeros - Last Filed: 10/18/17 08:49> Subjective - Date & Time of Evaluation Date of Evaluation: 10/18/17 Time of Evaluation: 08:49 - Subjective Subjective: SURGERY NOTE FOR DR. SALGADO 37F seen and examined at bedside. Patient continues to have abdominal pain in the left adnexa. Denies nausea/vomiting. Denies fevers, chills. Objective - Vital Signs/Intake and Output Vital Signs (last 24 hours): Temp Pulse Resp BP Pulse Ox 98 F 58 L 20 107/60 97 10/18/17 08:04 10/18/17 08:04 10/18/17 08:04 10/18/17 08:04 10/18/17 08:04 - Medications Medications: Current Medications Ketorolac Tromethamine (Toradol) 15 mg IVP Q6 PRN PRN Reason: Pain, moderate (4-7) Last Admin: 10/17/17 20:18 Dose: 15 mg Metoclopramide HCl (Reglan) 5 mg IVP Q6 PRN PRN Reason: Nausea/Vomiting Morphine Sulfate (Morphine) 2 mg IVP Q4 PRN PRN Reason: Pain, severe (8-10) - Labs Labs: 10/18/17 06:50 10/18/17 06:50 - Constitutional Appears: Non-toxic, No Acute Distress - Respiratory Exam Respiratory Exam: Clear to Ausculation Bilateral, NORMAL BREATHING PATTERN - Cardiovascular Exam Cardiovascular Exam: REGULAR RHYTHM, +S1, +S2 - GI/Abdominal Exam GI & Abdominal Exam: Soft, Tenderness (left sided lower abdominal pain). absent : Distended, Firm, Guarding, Rigid, Rebound - Neurological Exam Neurological Exam: Alert, Awake Assessment and Plan - Assessment and Plan (Free Text) Assessment: 37F presents with abdominal pain of unknown etiology, no appendicitis Plan: - pain management - ADAT - No surgical intervention at this time Discussed with Dr. arben Landeros, PGY2 <Chapo Salgado - Last Filed: 10/18/17 13:28> Subjective - Date & Time of Evaluation Time of Evaluation: 11:15 - Subjective Subjective: Patient was seen and examined at the bedside. Agree with resident's note above. Objective - Vital Signs/Intake and Output Vital Signs (last 24 hours): Temp Pulse Resp BP Pulse Ox 98 F 58 L 20 107/60 97 10/18/17 08:04 10/18/17 08:04 10/18/17 08:04 10/18/17 08:04 10/18/17 08:04 - Medications Medications: Current Medications Ketorolac Tromethamine (Toradol) 15 mg IVP Q6 PRN PRN Reason: Pain, moderate (4-7) Last Admin: 10/17/17 20:18 Dose: 15 mg Metoclopramide HCl (Reglan) 5 mg IVP Q6 PRN PRN Reason: Nausea/Vomiting Morphine Sulfate (Morphine) 2 mg IVP Q4 PRN PRN Reason: Pain, severe (8-10) - Labs Labs: 10/18/17 06:50 10/18/17 06:50 Assessment and Plan - Assessment and Plan (Free Text) Plan: - Start clear liquid diet - IV fluids - pain control - No general surgery intervention at present time - Continue care as per medical team
--- NOTE | 2017-10-18 12:00 | CP.PCM.DIS ---
Provider - Provider Date of Admission: 10/17/17 04:29 Attending physician: John Roman Time Spent in preparation of Discharge (in minutes): 30 Diagnosis - Discharge Diagnosis (1) Abdominal pain Status: Acute Hospital Course - Lab Results Lab Results: Most Recent Lab Values WBC 5.5 K/uL (4.8-10.8) 10/18/17 06:50 RBC 4.22 Mil/uL (3.80-5.20) 10/18/17 06:50 Hgb 13.1 g/dL (12.0-16.0) 10/18/17 06:50 Hct 38.0 % (34.0-47.0) 10/18/17 06:50 MCV 90.1 fl (81.0-99.0) 10/18/17 06:50 MCH 31.0 pg (27.0-31.0) 10/18/17 06:50 MCHC 34.4 g/dL (33.0-37.0) 10/18/17 06:50 RDW 13.3 % (11.5-14.5) 10/18/17 06:50 Plt Count 170 K/uL (130-400) 10/18/17 06:50 MPV 9.5 fl (7.2-11.7) 10/18/17 06:50 Neut % (Auto) 61.7 % (50.0-75.0) 10/18/17 06:50 Lymph % (Auto) 27.7 % (20.0-40.0) 10/18/17 06:50 [place] % (Auto) 8.9 % (0.0-10.0) 10/18/17 06:50 Eos % (Auto) 1.2 % (0.0-4.0) 10/18/17 06:50 Baso % (Auto) 0.5 % (0.0-2.0) 10/18/17 06:50 Neut # (Auto) 3.4 K/uL (1.8-7.0) 10/18/17 06:50 Lymph # (Auto) 1.5 K/uL (1.0-4.3) 10/18/17 06:50 [place] # (Auto) 0.5 K/uL (0.0-0.8) 10/18/17 06:50 Eos # (Auto) 0.1 K/uL (0.0-0.7) 10/18/17 06:50 Baso # (Auto) 0.0 K/uL (0.0-0.2) 10/18/17 06:50 Sodium 143 mmol/l (132-148) 10/18/17 06:50 Potassium 4.0 MMOL/L (3.6-5.0) 10/18/17 06:50 Chloride 109 mmol/L (98-107) H 10/18/17 06:50 Carbon Dioxide 22 mmol/L (22-30) 10/18/17 06:50 Anion Gap 16 (10-20) 10/18/17 06:50 BUN 17 mg/dl (7-17) 10/18/17 06:50 Creatinine 0.7 mg/dl (0.7-1.2) 10/18/17 06:50 Est GFR ( Amer) > 60 10/18/17 06:50 Est GFR (Non-Af Amer) > 60 10/18/17 06:50 Random Glucose 73 mg/dL (65-105) 10/18/17 06:50 Calcium 8.2 mg/dL (8.4-10.2) L 10/18/17 06:50 Total Bilirubin 0.9 mg/dl (0.2-1.3) 10/18/17 06:50 AST 17 U/L (14-36) 10/18/17 06:50 ALT 29 U/L (9-52) 10/18/17 06:50 Alkaline Phosphatase 45 U/L (38-126) 10/18/17 06:50 Total Protein 5.7 G/DL (6.3-8.2) L 10/18/17 06:50 Albumin 3.0 g/dL (3.5-5.0) L 10/18/17 06:50 Globulin 2.7 gm/dL (2.2-3.9) 10/18/17 06:50 Albumin/Globulin Ratio 1.1 (1.0-2.1) 10/18/17 06:50 Urine Color Yellow (YELLOW) 10/17/17 08:30 Urine Clarity Clear (Clear) 10/17/17 08:30 Urine pH 7.0 (5.0-8.0) 10/17/17 08:30 Ur Specific [place] 1.033 (1.003-1.030) H 10/17/17 08:30 Urine Protein Negative mg/dL (NEGATIVE) 10/17/17 08:30 Urine Glucose (UA) Neg mg/dL (Normal) 10/17/17 08:30 Urine Ketones Negative mg/dL (NEGATIVE) 10/17/17 08:30 Urine Blood Moderate (NEGATIVE) 10/17/17 08:30 Urine Nitrate Negative (NEGATIVE) 10/17/17 08:30 Urine Bilirubin Negative (NEGATIVE) 10/17/17 08:30 Urine Urobilinogen 0.2-1.0 mg/dL (0.2-1.0) 10/17/17 08:30 Ur Leukocyte Esterase Neg [place]/uL (Negative) 10/17/17 08:30 Urine RBC (Auto) 5 /hpf (0-3) H 10/17/17 08:30 Urine Microscopic WBC 1 /hpf (0-5) 10/17/17 08:30 Ur Squamous Epith Cells 1 /hpf (0-5) 10/17/17 08:30 - Hospital Course Hospital Course: 37 years old female with hx of lower back pain comes with one day of sharp pain across the lower abdomen, was continuous, with sensation of bruising and increasing with pressure, coughing or stretching, with some relief from Naprosyn which she takes for her back. The abdomen felt distended. CTAP IMPRESSION: 1. Borderline enlarged appendix with apparent mild mucosal enhancement but without surrounding inflammation. Clinical correlation is needed. 2. Mild stranding about left adnexa, uncertain significance. Clinical correlation is needed. ABDOMINAL PAIN - Consult Surgery Dr Salgado, no surgical intervention at this time, no appendicitis. Recommended TEST CELL TECHNICIAN consult, no intervention at this time, and patient may follow up as outpatient. Stable to be discharged home and follow up PCP and OBGYN. - Pain management with Toradol - IV Fluids completed - Reglan for Nausea/vomit #. Leukocytosis - resolved Discharge Exam - Head Exam Head Exam: ATRAUMATIC, NORMOCEPHALIC - Eye Exam Eye Exam: EOMI, Normal appearance, PERRL Pupil Exam: NORMAL ACCOMODATION - ENT Exam ENT Exam: Mucous Membranes Moist, Normal Oropharynx - Neck Exam Neck exam: Full Rom, Normal Inspection - Respiratory Exam Respiratory Exam: Clear to PA & Lateral, NORMAL BREATHING PATTERN - Cardiovascular Exam Cardiovascular Exam: RRR, +S1, +S2 - GI/Abdominal Exam GI & Abdominal Exam: Normal Bowel Sounds, Soft. absent: Mass, Organomegaly - Back Exam Back exam: absent: CVA tenderness (L), CVA tenderness (R) - Neurological Exam Neurological exam: Alert, Oriented x3 - Psychiatric Exam Psychiatric exam: Normal Affect, Normal Mood - Skin Skin Exam: Dry, Normal Color Discharge Plan - Follow Up Plan Condition: FAIR Disposition: HOME/ ROUTINE Additional Instructions: follow up PCP and OBGYN as outpatient.
== END 2017-10-18 14:49 | disposition home or self-care (01) ==
LOC: H.ER 20:53 → H.ERHOLD 10-17 04:29 → H.MEDSURG1 10-17 05:54
PROVIDERS: ADMIT Internal Medicine; ATTEND Internal Medicine
DX: R10.30 Lower abdominal pain, unspecified (principal); M51.26 Other intervertebral disc displacement, lumbar region; M54.30 Sciatica, unspecified side; Z87.891 Personal history of nicotine dependence; K76.9 Liver disease, unspecified; D72.829 Elevated white blood cell count, unspecified; N83.209 Unspecified ovarian cyst, unspecified side
CPT/HCPCS: 36415; 74177; 76830; 80048; 80053; 81003; 81025; 85025; 96360; 96361; 96374; 99284; G0378; J1885; J7040; Q9966; Q9967